=== PATIENT | male | born 1985 | race Caucasian/White ===

== ENCOUNTER → 2019-09-06 12:13 | Outpatient (BNVA) | payer BC, SELFPAY | PROVIDERS: Family Provider Electrodiagnostic Medicine; PCP Electrodiagnostic Medicine; Visit Provider Nurse Practitioner Family | DX: R50.9 Fever, unspecified (principal); R68.89 Other general symptoms and signs | CPT/HCPCS: 87804 ==

== ENCOUNTER → 2021-12-01 11:47 | Outpatient (BNVA) | payer BC, SELFPAY | PROVIDERS: Family Provider Electrodiagnostic Medicine; PCP Electrodiagnostic Medicine; Visit Provider Family Medicine | DX: Z00.00 Encounter for general adult medical examination without abnormal findings (principal); I10 Essential (primary) hypertension; Z13.220 Encounter for screening for lipoid disorders; E55.9 Vitamin D deficiency, unspecified; E53.8 Deficiency of other specified B group vitamins; E11.8 Type 2 diabetes mellitus with unspecified complications; E03.9 Hypothyroidism, unspecified | CPT/HCPCS: 80053; 80061; 82306; 82607; 83036; 83721; 84439; 84443; 85025 ==

== ENCOUNTER 2022-12-13 10:10 | Emergency (ER) | payer OTHER, SELFPAY ==
[2022-12-13 10:12] VITALS: BP 197/93; PULSE 54; RESP 15; TEMP 36.9; O2SAT 100; BMI 37.0
--- NOTE | 2022-12-13 10:24 | XR_ITS ---
WS: [id number] XR chest 1V portable [id number] REASON FOR EXAM: Chest pain FINDINGS: Mediastinum is somewhat prominent, likely due to mediastinal fat. Thoracic aorta appears normal. Normal heart size. Calcified granulomatous disease in both hemithoraces. No active pulmonary parenchymal or pleural disease. No significant abnormality of the bony thorax. XR/XR chest 1V portable [id number] IMPRESSION: No acute chest abnormality.
--- NOTE | 2022-12-13 10:45 | ED_ITS ---
HPI - Chest Pain General: Chief Complaint: Chest Pain Stated Complaint: chest tightness Time Seen by Provider: 12/13/22 10:26 History of Present Illness: Patient is a 37-year-old male who comes to the ED with chest pain. Past medical history of type II diabetic, hypothyroidism and hypertension. Symptoms started last night at around 8 PM when he was watching TV. He describes developing some pressure in his chest that is located right in the center of his chest. He went to bed and woke up and the chest pressure was still there. Denies any improving factors. He does state putting any pressure on his chest or if he sitting upright worsens symptoms. He rates his chest discomfort a 5 out of 10. He has been checking his blood pressure at home since symptoms started and his blood pressures been more elevated. Patient does endorse that about 4 days ago over the weekend he had a 2 days of heavier alcohol drinking than usual and he thinks he got a little dehydrated from that. Denies any shortness of breath, fevers, chills, cough, abdominal pain, nausea/vomiting, bladder or bowel symptoms. Denies any cardiac history. Denies any recent energy drink usage. Associated symptoms: Deny abdominal pain, dyspnea, fever(s), nausea, pal pitations or vomiting Review of Systems Const: Denies: fever(s), chills or fatigue Eyes: Denies: change in vision or eye discomfort ENMT: Denies: throat pain, odynophagia, nasal discharge or nasal congestion Card: Reports: chest pain; Denies: palpitations, edema, swelling of feet/ankles, dyspnea on exertion or orthopnea Resp: Denies: dyspnea, productive cough or non-productive cough GI: Denies: abdominal pain, nausea, vomiting, diarrhea, constipation or hematochezia : Denies: flank pain, difficulty urinating, dysuria or hematuria Musc: Denies: neck pain, back pain or extremity swelling Skin/Breast: Denies: rash or new lesions Neuro: Denies: headache(s), numbness in extremities or weakness in extremities PFSH ED PFSH: Medical History Diabetes mellitus Hypertension Hypothyroidism Surgical History No significant past surgical history Social History Smoking and tobacco status: never smoked Alcohol intake: never Substance/Drug Use: never Physical Exam Narrative: EXAM NARRATIVE: Patient is sitting comfortably on exam bed when I enter the room. He appears healthy, nontoxic and in no acute distress or pain. Const: COMMON NORMALS: no acute distress, patient oriented x3, healthy appearing and alert HENMT: COMMON NORMALS: normocephalic HEAD & SCALP: normocephalic MOUTH: Normal oral and palatal mucosa present THROAT: posterior oropharynx normal and uvula midline Neck/C-Spine: COMMON NORMALS: supple GENERAL: Yes normal visual inspection Chest: OTHER: Chest pain is reproducible with palpation to sternum. Resp: COMMON NORMALS: normal respiratory effort, No retractions, No use of accessory muscles and clear to auscultation bilaterally AUSCULTATION: clear to auscultation bilaterally Cardio: COMMON NORMALS: regular rate, regular rhythm, S1 normal heart sound present, S2 normal heart sound present, No gallops present (Cardio), No clicks present (Cardio), No murmurs present (Cardio) and Peripheral pulses 2+ throughout RATE: regular rate RHYTHM: regular rhythm HEART SOUNDS: S1 normal heart sound present and S2 normal heart sound present PERIPHERAL PULSES: Peripheral pulses 2+ throughout GI: COMMON NORMALS: Normal to inspection, nondistended, normoactive bowel sounds present, Soft to palpation, non-tender and no masses PALPATION: Yes Soft to palpation : COMMON NORMALS: Yes no CVA tenderness BLADDER/KIDNEY EXAM: Yes no CVA tenderness Back/Pelvis: COMMON NORMALS: no CVA tenderness Extremity: COMMON NORMALS: normal to inspection Neuro: COMMON NORMALS: patient oriented x3 SENSORIUM/ORIENTATION: Yes alert GAIT: Yes Normal gait present Skin: GENERAL SKIN EXAM: dry skin Course Vital Signs: Vital signs: Vital Signs Temperature 98.4 F 12/13/22 10:12 Pulse Rate 51 L 12/13/22 11:16 Respiratory Rate 15 12/13/22 10:12 Blood Pressure 169/93 12/13/22 11:16 Pulse Oximetry 97 12/13/22 11:16 Oxygen Delivery Me thod Room Air 12/13/22 11:16 MDM - Chest Pain Medical Decision Making Patient is a 37-year-old male who comes to the ED with chest pain. Past medical history of type II diabetic, hypothyroidism and hypertension. Symptoms started last night at around 8 PM when he was watching TV. He describes developing some pressure in his chest that is located right in the center of his chest. He went to bed and woke up and the chest pressure was still there. Denies any improving factors. He does state putting any pressure on his chest or if he sitting upright worsens symptoms. He rates his chest discomfort a 5 out of 10. He has been checking his blood pressure at home since symptoms started and his blood pressures been more elevated. Patient does endorse that about 4 days ago over the weekend he had a 2 days of heavier alcohol drinking than usual and he thinks he got a little dehydrated from that. Denies any shortness of breath, fevers, chills, cough, abdominal pain, nausea/vomiting, bladder or bowel symptoms. Denies any cardiac history. Denies any recent energy drink usage.. Vitals are stable. Patient appears nontoxic and in no acute distress or pain. Chest pain is reproducible with palpation to sternum. CBC and CMP are unremarkable. Troponin negative. EKG showed sinus bradycardia with no ST segment elevation or depression seen. Given patient's clinical presentation, reproducible chest pain with palpation, EKG and negative troponin he was stable for discharge home. He was diagnosed with atypical chest pain. Told to follow-up with his PCP within the next week for reevaluation. Return to ED precautions given. Patient understood and agreed with plan. Lab Data I reviewed the patient's lab results. 12/13/22 10:35 12/13/22 10:35 Radiology Impressions Chest X-Ray 12/13/22 10:24 IMPRESSION: No acute chest abnormality. Laboratory Results WBC 4.9 10^3/uL (4.0-10.0) 12/13/22 10:35 RBC 4.76 10^6/uL (4.1-5.3) 12/13/22 10:35 Hgb 14.6 g/dL (11.7-16.6) 12/13/22 10:35 Hct 42.7 % (42.0-52.0) 12/13/22 10:35 MCV 89.7 fl (80-94) 12/13/22 10:35 MCH 30.7 pg (28.0-34.0) 12/13/22 10:35 MCHC 34.2 g/dL (30.0-36.0) 12/13/22 10:35 RDW 12.4 % (12.1-15.1) 12/13/22 10:35 Plt Count 191 10^3/cmm (130-400) 12/13/22 10:35 MPV 9.6 fL (7.4-10.4) 12/13/22 10:35 Neut % (Auto) 65.4 % 12/13/22 10:35 Lymph % (Auto) 24.0 % 12/13/22 10:35 Archuleta % (Auto) 6.1 % 12/13/22 10:35 Eos % (Auto) 3.1 % 12/13/22 10:35 Baso % (Auto) 1.0 % 12/13/22 10:35 Neut # (Auto) 3.21 10^3/uL (1.8-7.7) 12/13/22 10:35 Lymph # (Auto) 1.2 10^3/uL (0.8-4.8) 12/13/22 10:35 Archuleta # (Auto) 0.3 10^3/uL (0.2-0.9) 12/13/22 10:35 Eos # (Auto) 0.2 10^3/uL (0.0-0.8) 12/13/22 10:35 Baso # (Auto) 0.1 10^3/uL (0.0-0.1) 12/13/22 10:35 Nucleated RBC % (auto) 0 % 12/13/22 10:35 Nucleated RBCs # 0.0 /100WBC 12/13/22 10:35 Sodium 138 mmol/L (136-145) 12/13/22 10:35 Potassium 3.9 mmol/L (3.5-5.1) 12/13/22 10:35 Chloride 99 mmol/L (98-107) 12/13/22 10:35 Carbon Dioxide 29 mmol/L (22-29) 12/13/22 10:35 Anion Gap 13.9 (5-19) 12/13/22 10:35 BUN 9 mg/dL (6-20) 12/13/22 10:35 Creatinine 0.7 mg/dL (0.7-1.2) 12/13/22 10:35 GFR Calculation 127.6 mL/min (90-130) 12/13/22 10:35 Glucose 114 mg/dL (65-115) 12/13/22 10:35 Calculated Osmolality 286 mOsm/kg (285-295) 12/13/22 10:35 Calcium 9.5 mg/dL (8.5-10.5) 12/13/22 10:35 Total Bilirubin 0.3 mg/dL (0.15-1.2) 12/13/22 10:35 AST 32 U/L (0-40) 12/13/22 10:35 ALT 56 U/L (0-41) H 12/13/22 10:35 Alkaline Phosphatase 50 U/L (40-130) 12/13/22 10:35 Troponin T Baseline 7 ng/L (0-15) 12/13/22 10:35 Total Protein 7.4 g/dL (6.6-8.7) 12/13/22 10:35 Albumin 4.4 g/dL (3.5-5.2) 12/13/22 10:35 Globulin 3.0 g/dL (1.3-4.6) 12/13/22 10:35 EKG Data EKG 1: EKG interpretation date: 12/13/22 Interpretation: Sinus bradycardia, 46 bpm, no ST segment ovation depression seen. Discharge Plan Discharge Patient Disposition: Home Clinical Impression: Atypical chest pain Condition: Stable Prescriptions: No Action valsartan 160 mg tablet 160 mg PO DAILY (DME) pen needle, diabetic [BD Ultra-Fine Short Pen Needle] 31 gauge x 5/16 needle See Rx Instructions .Route Qty: 100 3RF Rx Instructions: As directed metoprolol tartrate 50 mg tablet 50 mg PO BID Qty: 180 2RF hydrochlorothiazide 25 mg tablet 25 mg PO DAILY Qty: 90 3RF levothyroxine 75 mcg capsule 75 mcg PO DAILY Qty: 90 3RF omeprazole 40 mg capsule,delayed release(DR/EC) 40 mg PO DAILY Qty: 90 3RF metformin 1,000 mg tablet 1,000 mg PO BID Qty: 180 2RF cetirizine 10 mg tablet 10 mg PO DAILY PRN (Reason: allergy symptoms) Qty: 90 3RF Levemir FlexPen 100 unit/mL (3 mL) insulin pen 50 unit SUBCUT DAILY Rx Instructions: Increase by 5 units every 3 days that your fasting glucose is >150 Trulicity 1.5 mg/0.5 mL pen injector 1.75 mg SUBCUT .Once a week Rx Instructions: ON SATURDAY Vitamin D3 25 mcg (1,000 unit) Tablet 25 mcg PO DAILY Discharge Orders: Discharge ED (Routine); Ordered 12/13/22 Ordered By: Cornelio Jay Referrals: Cornelio Belcher MD [Primary Care Provider] - Discharge Diet: Regular Discharge Activity: Increase activity as tolerated Patient Instructions: Chest Pain (DC), Noncardiac Chest Pain (ED) Activity Restrictions/Additional Instructions: Follow-up with medical provider as directed in the next week for reevaluation. Take medications as prescribed. Return to the ER or your medical provider if condition worsens. Please read and understand discharge instructions. Thank you for choosing [facility] for your healthcare needs today. Please realize this is an emergency room and that we are providing you with a medical screening exam and this may not be complete and all inclusive of all the testing and or work up that you may need to determine your ailment or severity of your illness. It is very important that you follow up as instructed or that you return to the Emergency Department should you have concerns or if your condition changes or worsens in any way. Coding Level of Care Code ED Retail Experience Specialist for Polina Linn
--- NOTE | 2022-12-13 10:46 | ECG_ITS ---
[facility] Test Date: 2022-12-13 Pat Name: Zeeshan May Department: Room: Gender: Male Functional Consultant: : 1985 Requested By: Cornelio Jay Order Number: [id number] Maynard MD: Chanel Alcocer M.D. Measurements Intervals [place] Rate: 46 P: 38 SC: 148 QRS: -9 QRSD: 102 T: 11 QT: 411 QTc: 362 Interpretive Statements SINUS BRADYCARDIA POSSIBLE RIGHT VENTRICULAR CONDUCTION DELAY [RSR (QR) IN V1/V2] VOLTAGE CRITERIA FOR LVH [MEETS CRITERIA IN ONE OF: R(aVL), S(V1), R(V5), R(V5/V6)+S(V1)] No previous ECG available for comparison Electronically Signed On 12-13-2022 13:00:33 CDT by Chanel Alcocer M.D. [email or web address]
[2022-12-13 10:48] LABS: Basophils # 0.1 10^3/uL (0.0-0.1); Eosinophils # 0.2 10^3/uL (0.0-0.8); Eosinophils % 3.1 %; Hematocrit 42.7 % (42.0-52.0); Hemoglobin 14.6 g/dL (11.7-16.6); Lymphocytes # 1.2 10^3/uL (0.8-4.8); Mean Corpuscular HGB Conc 34.2 g/dL (30.0-36.0); Mean Corpuscular Hemoglobin 30.7 pg (28.0-34.0); Mean Corpuscular Volume 89.7 fl (80-94); Mean Platelet Volume 9.6 fL (7.4-10.4); Monocytes # 0.3 10^3/uL (0.2-0.9); Monocytes % 6.1 %; Neutrophils # 3.21 10^3/uL (1.8-7.7); Neutrophils % 65.4 %; Nucleated Red Blood Cells % 0 %; Platelet Count 191 10^3/cmm (130-400); Red Blood Count 4.76 10^6/uL (4.1-5.3); Red Cell Distribution Width 12.4 % (12.1-15.1); White Blood Count 4.9 10^3/uL (4.0-10.0)
[2022-12-13 11:08] LABS: Alanine Aminotransferase 56 U/L (0-41); Albumin Level 4.4 g/dL (3.5-5.2); Alkaline Phosphatase 50 U/L (40-130); Anion Gap 13.9 (5-19); Aspartate Amino Transferase 32 U/L (0-40); Blood Urea Nitrogen 9 mg/dL (6-20); Calcium 9.5 mg/dL (8.5-10.5); Carbon Dioxide 29 mmol/L (22-29); Chloride 99 mmol/L (98-107); Glomerular Filtration Rate 127.6 mL/min (90-130); Glucose 114 mg/dL (65-115); Osmolality Calculated 286 mOsm/kg (285-295); Potassium 3.9 mmol/L (3.5-5.1); Sodium 138 mmol/L (136-145); Total Bilirubin 0.3 mg/dL (0.15-1.2); Total Protein 7.4 g/dL (6.6-8.7)
[2022-12-13 11:09] LABS: Troponin(5th) Baseline 7 ng/L (0-15)
[2022-12-13 11:16] VITALS: BP 169/93; PULSE 51; O2SAT 97
[2022-12-13] MEDS: aspirin 81 mg Chew Tablet 324 MG PO (11:27)
[2022-12-13 11:56] VITALS: BP 156/99; PULSE 57; RESP 20; O2SAT 97
== END 2022-12-13 11:57 | disposition home or self-care (01) ==
PROVIDERS: Emergency Provider Physician Assistant; PCP Family Medicine
DX: R07.89 Other chest pain (principal); R00.1 Bradycardia, unspecified
CPT/HCPCS: 71045; 80053; 84484; 85025; 93005; 99285

== ENCOUNTER → 2022-12-14 09:13 | Outpatient (BNVA) | payer OTHER, SELFPAY | PROVIDERS: PCP Family Medicine; Visit Provider Family Medicine | DX: R07.89 Other chest pain (principal); R53.81 Other malaise; R53.83 Other fatigue; E03.9 Hypothyroidism, unspecified; Z51.81 Encounter for therapeutic drug level monitoring; E11.9 Type 2 diabetes mellitus without complications; E53.8 Deficiency of other specified B group vitamins; Z13.220 Encounter for screening for lipoid disorders | CPT/HCPCS: 80053; 80061; 82607; 83036; 84403; 84439; 84443; 85025 ==

== ENCOUNTER → 2023-05-27 12:27 | Outpatient (BNVA) | payer OTHER, SELFPAY | PROVIDERS: PCP Family Medicine; Visit Provider Family Medicine | DX: E11.9 Type 2 diabetes mellitus without complications (principal); E78.5 Hyperlipidemia, unspecified; E34.9 Endocrine disorder, unspecified; Z51.81 Encounter for therapeutic drug level monitoring | CPT/HCPCS: 80053; 80061; 83036; 84403; 85025 ==

== ENCOUNTER 2023-08-26 06:55 | Outpatient (CLI) | payer OTHER, SELFPAY ==
--- NOTE | 2023-08-26 07:15 | USCV_ITS ---
Zeeshan May Age: 38 Gender: M : 1985 Exam Date: 08/26/2023 07:06 Ordering Phys: Cornelio Belcher MD Technologist: JUNIOR [place] [facility] [place]: HTN Aortic Velocity @ SMA (cm/s) 79.6 RIGHT KIDNEY LEFT KIDNEY Velocity (cm/s) Velocity (cm/s) Sys/Lopez Sys/Lopez Resistive Index Resistive Index 122.8 / 47.4 0.61 Proximal Renal Artery 104.3 / 44.4 0.57 109.1 / 40.5 0.63 Mid Renal Artery 110.8 / 46.1 0.58 71.5 / 28.8 0.60 Distal Renal Artery 103.0 / 34.3 0.67 180.0 / 61.5 0.65 Hilar 67.7 / 24.5 0.64 58.8 / 21.5 0.63 Upper Pole 37.1 / 17.5 0.53 31.7 / 12.8 0.60 Mid Pole 37.9 / 13.2 0.65 54.5 / 21.5 0.60 Lower Pole 34.8 / 14.3 0.59 2.26 Renal Aortic Ratio 1.38 Accleration Index (cm/sec2) 1317.0 Hilar 359.60 0 411.10 Upper Pole 122.80 172.00 Mid Pole 250.90 299.00 Lower Pole 278.60 118.0 Kidney Length (mm) 109.0 FINDINGS No comparison. No evidence of abdominal aortic aneurysm. There is no evidence of hemodynamically significant right renal artery stenosis. There is no evidence of hemodynamically significant left renal artery stenosis. Normal size kidneys with no atrophy. CONCLUSIONS No sonographic evidence of hemodynamically significant renal artery stenosis bilaterally. Dr. Annamaria Lowe DO (Electronically Signed) Final Date: 26 August 2023 08:24 S
== END 2023-08-26 06:56 | disposition home or self-care (01) ==
LOC: RAD 06:56
PROVIDERS: PCP Family Medicine; Visit Provider Family Medicine
DX: I10 Essential (primary) hypertension (principal)
CPT/HCPCS: 93975

== ENCOUNTER → 2023-11-08 09:39 | Outpatient (BNVA) | payer OTHER, SELFPAY | PROVIDERS: PCP Family Medicine; Visit Provider Family Medicine | DX: R53.81 Other malaise (principal); R53.83 Other fatigue; E11.9 Type 2 diabetes mellitus without complications; E34.9 Endocrine disorder, unspecified; I10 Essential (primary) hypertension; E03.9 Hypothyroidism, unspecified; N18.9 Chronic kidney disease, unspecified; R73.03 Prediabetes | CPT/HCPCS: 80053; 80061; 83036; 85025 ==

== ENCOUNTER → 2024-09-15 11:01 | Outpatient (BNVA) | payer OTHER, SELFPAY | PROVIDERS: PCP Family Medicine; Visit Provider Family Medicine | DX: Z00.00 Encounter for general adult medical examination without abnormal findings (principal); Z51.81 Encounter for therapeutic drug level monitoring; Z13.6 Encounter for screening for cardiovascular disorders; E03.9 Hypothyroidism, unspecified; E11.9 Type 2 diabetes mellitus without complications | CPT/HCPCS: 80053; 80061; 83036; 83721; 84439; 84443; 85025 ==

== ENCOUNTER → 2024-10-07 12:45 | Outpatient (BNVA) | payer OTHER, SELFPAY | PROVIDERS: PCP Family Medicine; Visit Provider Family Medicine | DX: R50.9 Fever, unspecified (principal) | CPT/HCPCS: 87400; 87426 ==

== ENCOUNTER → 2024-12-09 08:29 | Outpatient (BNVA) | payer OTHER, SELFPAY | PROVIDERS: PCP Family Medicine; Visit Provider Family Medicine | DX: Z00.00 Encounter for general adult medical examination without abnormal findings (principal); Z51.81 Encounter for therapeutic drug level monitoring; Z13.6 Encounter for screening for cardiovascular disorders; E11.9 Type 2 diabetes mellitus without complications; R53.81 Other malaise; R53.83 Other fatigue | CPT/HCPCS: 80053; 80061; 83036; 83721; 85025 ==